=== PATIENT | male | born 1985 | race Caucasian/White ===

== ENCOUNTER 2023-03-27 19:54 | Emergency (ER) | payer OTHER ==
[2023-03-27 20:19] VITALS: TEMP 98.1
[2023-03-27] MEDS ORDERED: MORPHINE SULFATE 4 MG/ML SYRINGE IVP STA (20:21)
--- NOTE | 2023-03-27 20:23 | XR ---
EXAMINATION TYPE: XR shoulder complete LT DATE OF EXAM: 03/27/2023 8:13 PM CLINICAL INDICATION:Male, 37 years old with history of left shoulder pain; PHH COMPARISON: None TECHNIQUE: XR shoulder complete LT; shoulder was examined in AP, internally rotated and scapular Y p rojections. FINDINGS: IMPRESSION: Anterior-inferior left shoulder dislocation with subtle Hill-Sachs deformity to the humeral head. Cor relate with MRI.
[2023-03-27] MEDS ORDERED: SODIUM CHLORIDE 0.9% 500 ML 500 ML IV STA (21:28)
[2023-03-27] MEDS: PROPOFOL 10 MG/ML 20 ML VIAL IV ONE ×2 (21:48→22:43)
[2023-03-27 22:09] VITALS: RESP 18
[2023-03-27 22:53] VITALS: BP 120/86; PULSE 81
[2023-03-27] MEDS ORDERED: ACET/COD 300 MG/30 MG STARTER PACK 6 TAB BTL PO STA (22:53)
--- NOTE | 2023-03-27 23:04 | ED ---
General Adult HPI - General Chief complaint: Extremity Injury, Upper Stated complaint: Lt shoulder injury Time Seen by Provider: 03/27/23 20:01 Source: patient Mode of arrival: wheelchair Limitations: no limitations - History of Present Illness Initial comments: A 37-year-old male presents to ED with a chief complaint of left shoulder injury. Patient states that he was trying to separate his 2 dogs from fighting and notes that he tried to dive to separate the 2. States that when he dove he landed directly onto his left shoulder. No head injury or LOC at this time. Now notes left shoulder pain. No other injuries. No chest pain shortness breath and no other complaints. - Related Data Previous Rx's Medication Instructions Recorded Acetaminophen Tab [Tylenol] 500 mg PO Q6H #30 tablet 03/27/23 HYDROcodone/APAP 5-325MG [[place] 1 tab PO Q6HR PRN 3 Days #12 tab 03/27/23 5-325] Ibuprofen [Motrin] 600 mg PO Q6HR PRN #30 tab 03/27/23 Allergies Allergy/AdvReac Type Severity Reaction Status Date / Time No Known Allergies Allergy Verified 03/27/23 20:00 Review of Systems ROS Statement: Those systems with pertinent positive or pertinent negative responses have been documented in the HPI. ROS Other: All systems not noted in ROS Statement are negative. Past Medical History Past Medical History: No Reported History History of Any Multi-Drug Resistant Organisms: None Reported Past Surgical History: No Surgical Hx Reported Past Psychological History: ADD/ADHD, Anxiety Smoking Status: Current every day smoker Past Alcohol Use History: Rare Past Drug Use History: Marijuana General Exam Limitations: no limitations General appearance: alert, in distress Eye exam: Present: normal appearance Neck exam: Present: normal inspection Respiratory exam: Present: normal lung sounds bilaterally Cardiovascular Exam: Present: tachycardia GI/Abdominal exam: Present: soft Extremities exam: Present: other (The eighth and sensation equal and intact of bilateral upper extremities. Radial pulses 2+ bilaterally. Left upper extremity shows obvious deformity with step-off.) Neurological exam: Present: alert, oriented X3 Skin exam: Present: warm, dry Course Vital Signs 03/27/23 03/27/23 03/27/23 19:58 21:48 21:50 Temperature 98.1 F Pulse Rate 116 H 105 H 94 Respiratory 20 18 18 Rate Blood Pressure 148/96 121/85 110/73 O2 Sat by Pulse 98 96 98 Oximetry 03/27/23 03/27/23 03/27/23 22:00 22:05 22:10 Temperature Pulse Rate 103 H 99 86 Respiratory 18 18 18 Rate Blood Pressure 100/81 111/69 109/78 O2 Sat by Pulse 100 97 99 Oximetry 03/27/23 03/27/23 22:15 22:30 Temperature Pulse Rate 98 81 Respiratory 18 18 Rate Blood Pressure 131/82 120/86 O2 Sat by Pulse 100 100 Oximetry Procedures - [place] Protocol (Time Out) Performing Provider: Dillan Jung Nurse: Pearl Wang Respiratory Therapist: Karol Matson Patient Identification (2 identifiers required): Chart, Verbal Patient/Legal Magnetic Grinder Operator has Confirmed: Identity Site: Left shoulder Site Marked: Yes Site Verified With Patient/Guardian: Yes Final Confirmation: Confirmed w/Provider - Orthopedic Joint Reduction Joint #1 Side: left Joint Reduction Location: shoulder Analgesia: procedural sedation Technique Used: traction/counter-traction, direct manipulation Post-Reduction Neuro Exam: intact Post-Reduction Vascular Exam: intact Post Reduction X-Ray Obtained: Yes Post Reduction X-Ray Results: reduced Splint Applied: Yes (Shoulder sling) Patient Tolerated Procedure: well, no complications Medical Decision Making - Medical Decision Making Was pt. sent in by a medical professional or institution (SEN Palmer, ROLL TRUCKER, urgent care, hospital, or custodial...) When possible be specific @ -No Did you speak to anyone other than the patient for history (EMS, parent, family, police, friend...)? What history was obtained from this source @ -No Did you review nursing and triage notes (agree or disagree)? Why? @ -I reviewed and agree with nursing and triage notes Were old charts reviewed (outside hosp., previous admission, EMS record, old EKG, old radiological studies, urgent care reports/EKG's, custodial records)? Report findings @ -No old charts were reviewed Differential Diagnosis (chest pain, altered mental status, abdominal pain women, abdominal pain men, vaginal bleeding, weakness, fever, dyspnea, syncope, headache, dizziness, GI bleed, back pain, seizure, CVA, palpatations, mental health, musculoskeletal)? @ -Differential Musculoskeletal Muscular strain, contusion, ligament sprain, fracture, arthritis, septic arthritis, bursitis, cellulitis, muscle spasm, nerve compression, DVT, arterial occlusion, herpes zoster, electrolyte abnormality, tumor.... This is not meant to be in all inclusive list EKG interpreted by me (3pts min.). @ -None X-rays interpreted by me (1pt min.). @ -X-ray of the left shoulder shows anterior shoulder dislocation with Hill- Sachs deformity. Post reduction films show successful reduction of shoulder. CT interpreted by me (1pt min.). @ -None done U/S interpreted by me (1pt. min.). @ -None done What testing was considered but not performed or refused? (CT, X-rays, U/S, labs)? Why? @ -None What meds were considered but not given or refused? Why? @ -None Did you discuss the management of the patient with other professionals (professionals i.e. , PA, ROLL TRUCKER, lab, RT, psych nurse, social security assessor, immigration lawyer, teacher, small business banking officer, director of casework department)? Give summary @ -No Was smoking cessation discussed for >3mins.? @ -No Was critical care preformed (if so, how long)? @ -No Were there social determinants of health that impacted care today? How? (Homelessness, low income, unemployed, alcoholism, drug addiction, transportation, low edu. Level, literacy, decrease access to med. care, senior living, rehab)? @ -No Was there de-escalation of care discussed even if they declined (Discuss DNR or withdrawal of care, Hospice)? DNR status @ -No What co-morbidities impacted this encounter? (DM, HTN, Smoking, COPD, CAD, Cancer, CVA, ARF, Chemo, Hep., AIDS, mental health diagnosis, sleep apnea, morbid obesity)? @ -None Was patient admitted / discharged? Hospital course, mention meds given and route, prescriptions, significant lab abnormalities, going to OR and other pertinent info. @ -Discharge 37-year-old male presents to ED with left shoulder injury. Initial x-ray did show anterior inferior shoulder dislocation with a Hill-Sachs deformity. Reduction performed. Procedural sedation performed by Dr. Jung. Suture successful with reduction of shoulder with postreduction x-ray confirming this. Post reduction neurovascularly intact. Patient discharged home in stable condition with referral to see orthopedics. Undiagnosed new problem with uncertain prognosis? @ -No Drug Therapy requiring intensive monitoring for toxicity (Heparin, Nitro, Insulin, Cardizem)? @ -No Were any procedures done? @ -Yes, shoulder reduction Diagnosis/symptom? @ -Left shoulder dislocation Acute, or Chronic, or Acute on Chronic? @ -Acute Uncomplicated (without systemic symptoms) or Complicated (systemic symptoms)? @ -Uncomplicated Side effects of treatment? @ -No Exacerbation, Progression, or Severe Exacerbation? @ -No Poses a threat to life or bodily function? How? (Chest pain, USA, CT, pneumonia, PE, COPD, DKA, ARF, appy, cholecystitis, CVA, Diverticulitis, Homicidal, Suicidal, threat to staff... and all critical care pts) @ -No Disposition Clinical Impression: Shoulder dislocation Disposition: HOME SELF-CARE Condition: Good Additional Instructions: Please return to the Emergency Department if symptoms worsen or any other concerns. Please follow-up with orthopedics. Prescriptions: Ibuprofen [Motrin] 600 mg PO Q6HR PRN #30 tab PRN Reason: Pain HYDROcodone/APAP 5-325MG [[place] 5-325] 1 tab PO Q6HR PRN 3 Days #12 tab PRN Reason: Pain Acetaminophen Tab [Tylenol] 500 mg PO Q6H #30 tablet Is patient prescribed a controlled substance at d/c from ED?: No Referrals: Nonstaff,Physician [Primary Care Provider] - 1-2 days Rhett Barrera DO [Doctor of Osteopathic Medicine] - 1-2 days Time of Disposition: 23:09
--- NOTE | 2023-03-28 | XR ---
EXAM: XR Left Shoulder Complete, 2 or More Views CLINICAL HISTORY: ITS.REASON XR Reason: POST REDUCTION TECHNIQUE: Two or more views of the left shoulder. COMPARISON: 03/27/2023 FINDINGS: Bones/joints: Suspicion of anterior inferior osseous glenoid fracture (osseous Bankart). Soft tissues: Status post reduction with normal glenohumeral alignment. IMPRESSION: 1. Status post reduction with normal glenohumeral alignment. 2. Suspicion of anterior inferior osseous glenoid fracture (osseous Bankart).
== END 2023-03-27 23:24 | disposition home or self-care (01) ==
LOC: EC 19:54
DX: S43.035A Inferior dislocation of left humerus, initial encounter (principal); F17.200 Nicotine dependence, unspecified, uncomplicated; F12.90 Cannabis use, unspecified, uncomplicated; W18.30XA Fall on same level, unspecified, initial encounter
CPT/HCPCS: 73030; 73020; 23650; 99152; 99283; 96374; J2270; J2704

== ENCOUNTER 2023-11-21 01:09 | Emergency (ER) | payer OTHER ==
[2023-11-21 01:13] VITALS: TEMP 98
[2023-11-21] MEDS: HYDROmorphone 1 MG/ML 1 ML SYRINGE IM STA (02:04)
[2023-11-21] MEDS: LIDOCAINE 1% INJ 10MG/ML (20 ML MDV) SQ ONE (02:08)
--- NOTE | 2023-11-21 04:02 | ED ---
Animal Bite HPI - General Chief Complaint: Animal Bite Stated Complaint: Animal Bite Time Seen by Provider: 11/21/23 01:19 Source: family Mode of arrival: wheelchair Limitations: no limitations - History of Present Illness Initial Comments: 37-year-old male presenting with chief complaint of animal bite. His dog and a raccoon were fighting, he them and is unsure if he was bitten by the dog or the raccoon. He has a 3 cm laceration to the medial portion of the left upper arm. He also has multiple puncture wounds along the arm and [address] [facility] fifth knuckle. His last tetanus shot was 4 years ago. - Related Data Previous Rx's Medication Instructions Recorded Acetaminophen Tab [Tylenol] 500 mg PO Q6H #30 tablet 03/27/23 HYDROcodone/APAP 5-325MG [[place] 1 tab PO Q6HR PRN 3 Days #12 tab 03/27/23 5-325] Ibuprofen [Motrin] 600 mg PO Q6HR PRN #30 tab 03/27/23 Amoxic-Pot Clav 875-125Mg 1 tab PO Q12HR 10 Days #20 tab 11/21/23 [Augmentin 875-125] Allergies Allergy/AdvReac Type Severity Reaction Status Date / Time No Known Allergies Allergy Verified 11/21/23 01:13 Review of Systems ROS Statement: Those systems with pertinent positive or pertinent negative responses have been documented in the HPI. ROS Other: All systems not noted in ROS Statement are negative. Past Medical History Past Medical History: No Reported History History of Any Multi-Drug Resistant Organisms: None Reported Past Surgical History: No Surgical Hx Reported Past Psychological History: ADD/ADHD, Anxiety Smoking Status: Current every day smoker Past Alcohol Use History: Rare Past Drug Use History: Marijuana General Exam Limitations: no limitations General appearance: alert, other (in pain) Head exam: Present: atraumatic, normocephalic Eye exam: Present: normal appearance, EOMI Neck exam: Present: normal inspection. Absent: meningismus Respiratory exam: Absent: respiratory distress Left Upper Arm exam: Present: full ROM, laceration (3 cm) Hand Wrist exam: Present: full ROM, laceration (Puncture wound) Neurological exam: Present: alert, oriented X3 Psychiatric exam: Present: normal affect, normal mood Course Vital Signs 11/21/23 11/21/23 11/21/23 01:10 02:12 03:33 Temperature 98 F Pulse Rate 126 H 109 H 106 H Respiratory 18 18 16 Rate Blood Pressure 117/77 113/81 101/77 O2 Sat by Pulse 98 100 98 Oximetry 11/21/23 11/21/23 04:57 05:22 Temperature Pulse Rate 81 97 Respiratory 18 18 Rate Blood Pressure 135/90 117/89 O2 Sat by Pulse 100 99 Oximetry Procedures - Laceration Laceration #1 Consent Obtained: verbal consent Indication: laceration Site: upper extremity (L upper arm) Size (cm): 5 Description: irregular Depth: simple, single layer Anesthetic Used: lidocaine 1%, without epi Anesthesia Technique: local infiltration Pre-repair: wound explored, irrigated extensively Type of Sutures: nylon Size of Sutures: 3-0 Number of Sutures: 3 Technique: simple, interrupted Patient Tolerated Procedure: well Medical Decision Making - Medical Decision Making Was pt. sent in by a medical professional or institution (, SEN, BODY WORK AUTO TRIMMER, urgent care, hospital, or usp...) When possible be specific @ -No Did you speak to anyone other than the patient for history (EMS, parent, family, police, friend...)? What history was obtained from this source @ -Patient's partner at bedside supplements history Did you review nursing and triage notes (agree or disagree)? Why? @ -I reviewed and agree with nursing and triage notes Were old charts reviewed (outside hosp., previous admission, EMS record, old EKG, old radiological studies, urgent care reports/EKG's, usp records)? Report findings @ -No old charts were reviewed Differential Diagnosis (chest pain, altered mental status, abdominal pain women, abdominal pain men, vaginal bleeding, weakness, fever, dyspnea, syncope, headache, dizziness, GI bleed, back pain, seizure, CVA, palpatations, mental health, musculoskeletal)? @ -Differential includes laceration, fracture, foreign body, this is not an all-inclusive list EKG interpreted by me (3pts min.). @ -As above X-rays interpreted by me (1pt min.). @ -X-ray shows incomplete extension of the fingers particularly fifth fingers n oted. There is no acute fracture/dislocation evident in the right hand. The joint spaces in the right hand appear within normal limits. No suspicious foreign body in the soft tissue clearly seen There is no acute fracture/dislocation evident in the left elbow. No abnormal fat-pad signs are seen. Lucency consistent with penetration along the dorsal aspect of the distal humerus is noted. CT interpreted by me (1pt min.). @ -None done U/S interpreted by me (1pt. min.). @ -None done What testing was considered but not performed or refused? (CT, X-rays, U/S, labs)? Why? @ -None What meds were considered but not given or refused? Why? @ -Patient refused the complete dose of rabies immune globulin. He received 4mL injection into the bite and into the deltoid, however he refused the compl ete injection stating that it was too painful. I informed the patient that if rabies is not properly vaccinated against it is 100% fatal, patient conveys verbal understanding and continues to refuse. He is of sound mind and able to make his own decisions. Did you discuss the management of the patient with other professionals (professionals i.e. , PA, BODY WORK AUTO TRIMMER, lab, RT, psych nurse, psychiatric social worker, assistant accounting manager, teacher, water resources technical officer, wrapper caser)? Give summary @ -No Was smoking cessation discussed for >3mins.? @ -No Was critical care preformed (if so, how long)? @ -No Were there social determinants of health that impacted care today? How? (Homelessness, low income, unemployed, alcoholism, drug addiction, transportation, low edu. Level, literacy, decrease access to med. care, penitentiary, rehab)? @ -No Was there de-escalation of care discussed even if they declined (Discuss DNR or withdrawal of care, Hospice)? DNR status @ -No What co-morbidities impacted this encounter? (DM, HTN, Smoking, COPD, CAD, Cancer, CVA, ARF, Chemo, Hep., AIDS, mental health diagnosis, sleep apnea, morbid obesity)? @ -None Was patient admitted / discharged? Hospital course, mention meds given and route, prescriptions, significant lab abnormalities, going to OR and other pertinent info. @ -37-year-old male presenting with chief complaint of animal bite. Patient broke up a fight between his dog and a raccoon, he presents with multiple puncture wounds to the arms with 1 large laceration to the left upper arm. His tetanus is up-to-date. Wounds are thoroughly irrigated. The large laceration is loosely approximated after being cleansed. He is educated on wound care and signs of infection. He is started on Augmentin. Rabies vaccine is given. Patient refuses the complete dose of rabies immunoglobulin stating that it is too painful. I informed the patient that rabies is 100% fatal if not vaccinated against and treated early, patient conveys verbal understanding to this and continues to refuse. He is of sound mind and able to make his own decisions. Wounds are dressed. X-rays show no fracture or foreign body his pain has been appropriately treated. Discharged home. Follow-up with PCP. Report back to ER with any new or worsening symptoms. Discussed return parameters and answered all questions. Patient conveyed verbal understanding and agreed to the plan. I discussed this case in detail with my attending Dr. Ag Undiagnosed new problem with uncertain prognosis? @ -No Drug Therapy requiring intensive monitoring for toxicity (Heparin, Nitro, Insulin, Cardizem)? @ -No Were any procedures done? @ -Laceration repair Diagnosis/symptom? @ -Animal bite Acute, or Chronic, or Acute on Chronic? @ -Acute Uncomplicated (without systemic symptoms) or Complicated (systemic symptoms)? @ -Uncomplicated Side effects of treatment? @ -No Exacerbation, Progression, or Severe Exacerbation? @ -No Disposition Clinical Impression: Bite by animal Disposition: HOME SELF-CARE Condition: Good Instructions (If sedation given, give patient instructions): Animal Bite (ED), Rabies (ED) Additional Instructions: Follow-up with PCP. Report back to ER with any new or worsening symptoms. You have received an order for the remaining doses of your rabies vaccination, ensure that you receive these additional doses in order to be fully protected against rabies Prescriptions: Amoxic-Pot Clav 875-125Mg [Augmentin 875-125] 1 tab PO Q12HR 10 Days #20 tab Is patient prescribed a controlled substance at d/c from ED?: No Referrals: Gopal Diaz MD [Primary Care Provider] - 1-2 days Time of Disposition: 04:58
--- NOTE | 2023-11-21 04:08 | XR ---
EXAMINATION TYPE: XR elbow complete LT DATE OF EXAM: 11/21/2023 CLINICAL HISTORY: Dog bite TECHNIQUE: Frontal and lateral images of the left elbow are obtained. COMPARISON: None FINDINGS: There is no acute fracture/dislocation evident in the left elbow. No abnormal fat pad sig ns are seen. Lucency consistent with penetration injury along the dorsal aspect of the distal humerus is noted. IMPRESSION: As above.
--- NOTE | 2023-11-21 04:08 | XR ---
EXAMINATION TYPE: XR hand complete RT DATE OF EXAM: 11/21/2023 CLINICAL HISTORY: Dog bite TECHNIQUE: Frontal, lateral and oblique images of the right hand are obtained. COMPARISON: None. FINDINGS: Incomplete extension of the fingers particularly fifth finger is noted. There is no acute fracture/dislocation evident in the right hand. The joint spaces in the right hand appear within norm al limits. No suspicious foreign body in the soft tissue clearly seen. IMPRESSION: As above.
[2023-11-21] MEDS: AMOXIC-POT CLAV 875-125MG 1 EACH TAB PO STA (04:26)
[2023-11-21] MEDS: RABIES VACCINE (PCEC) 2.5 UNIT KIT IM ONE (04:27)
[2023-11-21] MEDS: RABIES IMM GLOB 300 UNIT/2 ML VIAL IM ONE (04:35)
[2023-11-21] MEDS: HYDROcodone/APAP 7.5-325MG 1 EACH TAB PO ONE (04:47)
[2023-11-21] MEDS: KETOROLAC 15 MG/ML 1 ML VIAL IM STA (04:49)
[2023-11-21 04:58] VITALS: RESP 18
[2023-11-21 05:26] VITALS: BP 117/89; PULSE 97
== END 2023-11-21 05:26 | disposition home or self-care (01) ==
LOC: EC 01:09
DX: S41.152A Open bite of left upper arm, initial encounter (principal); F17.200 Nicotine dependence, unspecified, uncomplicated; W54.0XXA Bitten by dog, initial encounter
CPT/HCPCS: 73080; 73130; 90675; 90377; 99283; 90471; 90472; 96372; 12002; J2001; J1170